=== PATIENT | male | born 1995 | race Caucasian/White ===

== ENCOUNTER 2021-06-12 01:36 | Emergency (ER) | payer SELFPAY ==
[2021-06-12] MEDS ORDERED: Sodium Chloride 0.9% 1,000 ML IV ONE (01:58)
[2021-06-12] MEDS ORDERED: Ondansetron 4 MG/2 ML SDV IVPUSH ONE (01:58)
[2021-06-12] MEDS ORDERED: Loperamide 2 MG Cap PO STA ×2 (01:58→05:09)
[2021-06-12] MEDS ORDERED: Magnesium Sulfate/Water 2 GM in Premix Bag 1 BAG IV ONE (03:02)
== END 2021-06-12 05:30 | disposition home or self-care (01) ==
LOC: JD.ED 01:36
DX: K52.9 Noninfective gastroenteritis and colitis, unspecified (principal); D72.829 Elevated white blood cell count, unspecified; Z88.0 Allergy status to penicillin
CPT/HCPCS: 36415; 80053; 83735; 85007; 85027; 96365; 96366; 99284; A9270; J2405; J3475; J7030; 96375